=== PATIENT | female | born 1995 | race Caucasian/White ===

== ENCOUNTER 2018-08-16 12:33 | Emergency (ER) | payer BC, OTHER ==
[~2018-08-16] VITALS: Ht 165.1 cm; Wt 59.0 kg
[~2018-08-16 12:33] MED LIST: AMOX500C2 PO; CPH250CIP PO; Depo Provera; HYDR-3454 PO; IBUP-30 PO; LEVO500T69 PO; MEDR150D8 IM; ONDA4TAB11 PO
--- OUTSIDE RECORDS SUMMARY | 2018-08-16 12:41 | XMS REPORT ---
Author NAPOLEON Nagel [facility] [place] eClinicalWorks Address Unknown Phone Unavailable Care Team Providers Care Passenger Vessel Chef Name Role Phone NAPOLEON ALCANTAR CP Unavailable Allergies No Known Allergies Problems Problem Type Condition Code Onset Dates Condition Status Assessment Encounter for Depo-Provera contraception Z30.42 Active Medications No Known Medications Procedures Procedure Coding System Code Date DEPO PROVERA (150 MG/ML) CPT-4 J1050 Mar 17, 2015 THER/PROPH/DIAG INJ, SC/IM CPT-4 12826 Mar 17, 2015 URINE TEST CPT-4 90034 Mar 17, 2015 Results No Known Results Summary Purpose eClinicalWorks Submission
--- OUTSIDE RECORDS SUMMARY | 2018-08-16 12:41 | XMS REPORT | Continuity of Care Document ---
Author Author [facility] Organization [facility] Address Unknown Phone Unavailable Allergies Active Description Code Type Severity Reaction Onset Reported/Identified Relationship to Patient Clinical Status Yes No Known Drug Allergies [id number] Drug Allergy Unknown N/A 12/23/2011 Medications There is no data. Problems Date Dx Coded Attending Type Code Diagnosis Diagnosed By 12/24/2011 Ot 079.99 VIRAL INFECTION NOS 12/24/2011 Ot 599.0 URIN TRACT INFECTION NOS 12/24/2011 Ot 780.60 FEVER, UNSPECIFIED 11/05/2012 BAKARI HESS, ROCCO Pimentel Ot 787.01 NAUSEA WITH VOMITING 11/05/2012 ROCCO VILLEGAS MD Ot 789.00 ABDOMINAL PAIN, UNSPECIFIED SITE 09/02/2013 ALEC HESS, GUCCI Dowell Ot 703.0 INGROWING NAIL 05/24/2015 GUCCI MICHAEL MD Ot 681.11 05/24/2015 GUCCI MICHAEL MD Ot V72.84 05/24/2015 LUZ MARAI AGUDELO Ot J03.90 ACUTE TONSILLITIS, UNSPECIFIED 05/24/2015 LUZ MARIA AGUDELO Ot R09.81 NASAL CONGESTION 08/31/2015 GUCCI MICHAEL MD Ot 681.11 ONYCHIA OF TOE 08/31/2015 GUCCI MICHAEL MD Ot V72.84 EXAM PRE-OPERATIVE NOS 11/02/2015 GUCCI MICHAEL MD Ot 681.11 ONYCHIA OF TOE 11/02/2015 GUCCI MICHAEL MD Ot V72.84 EXAM PRE-OPERATIVE NOS Procedures There is no data. Results There is no data. Encounters ACCT No. Visit Date/Time Discharge Status Pt. Type Provider Facility Loc./Unit Complaint [id number] 05/24/2015 18:25:00 05/24/2015 20:08:00 DIS Emergency LUZ MARIA AGUDELO [facility] ER [id number] 09/02/2013 11:50:00 09/02/2013 16:00:00 [id number] 08/30/2013 13:10:00 08/30/2013 23:59:59 CLS Outpatient GUCCI MICHAEL MD [facility] PREOP [id number] 11/05/2012 09:21:00 11/05/2012 11:24:00 DIS Emergency BAKARI HESS, ROCCO Pimentel [facility] ER [id number] 12/23/2011 21:54:00 Document Registration [id number] 08/14/2018 09:20:00 ACT Outpatient SANDY, SIDDHARTHA CALVO [facility]
--- OUTSIDE RECORDS SUMMARY | 2018-08-16 12:41 | XMS REPORT ---
Author NAPOLEON Nagel [facility] eClinicalWorks Address Unknown Phone Unavailable Care Team Providers Care Radio Division Lieutenant Name Role Phone NAPOLEON ALCANTAR CP Unavailable Allergies No Known Allergies Problems Problem Type Condition Code Onset Dates Condition Status Assessment Encounter for immunization Z23 Active Medications No Known Medications Procedures Procedure Coding System Code Date SINGLE IMMUNIZATION ADMIN CPT-4 62652 December 08, 2015 HEP B (ADULT) CPT-4 45256 December 08, 2015 Results No Known Results Immunizations Vaccine Administration Date HEP B (ADULT) December 08, 2015 Summary Purpose eClinicalWorks Submission
--- OUTSIDE RECORDS SUMMARY | 2018-08-16 12:41 | XMS REPORT ---
Author NAPOLEON Nagel [facility] eClinicalWorks Address Unknown Phone Unavailable Care Team Providers Care Cash Applications Representative Name Role Phone NAPOLEON ALCANTAR CP Unavailable Allergies No Known Allergies Problems Problem Type Condition Code Onset Dates Condition Status Assessment Encounter for Depo-Provera contraception Z30.42 Active Medications No Known Medications Procedures Procedure Coding System Code Date DEPO PROVERA (150 MG/ML) CPT-4 J1050 September 11, 2015 THER/PROPH/DIAG INJ, SC/IM CPT-4 37432 September 11, 2015 URINE TEST CPT-4 81332 September 11, 2015 Results No Known Results Summary Purpose eClinicalWorks Submission
--- OUTSIDE RECORDS SUMMARY | 2018-08-16 12:41 | XMS REPORT ---
Author NAPOLEON Nagel [facility] eClinicalWorks Address Unknown Phone Unavailable Care Team Providers Care Wall Covering Contractor Name Role Phone NAPOLEON ALCANTAR CP Unavailable Allergies No Known Allergies Problems Problem Type Condition Code Onset Dates Condition Status Assessment Encounter for immunization Z23 Active Medications No Known Medications Procedures Procedure Coding System Code Date SINGLE IMMUNIZATION ADMIN CPT-4 20363 Feb 15, 2016 HEP B (ADULT) CPT-4 01443 Feb 15, 2016 Results No Known Results Immunizations Vaccine Administration Date HEP B (ADULT) Feb 15, 2016 Summary Purpose eClinicalWorks Submission
[2018-08-16] MEDS ORDERED: PRED10TA22 PO (13:17)
--- NOTE | 2018-08-16 13:17 | ED Integumentary General ---
General Stated Complaint: RASH History of Present Illness Date Seen by Provider: Aug 16, 2018 Time Seen by Provider: 13:04 This is a 22-year-old female here for "I have poison oak". She was seen at a clinic 2 days ago and received a "shot" but this is not helping her. She has no difficulty swallowing or breathing, no intraoral swelling. Her skin is very itchy but is not painful. There is no sloughing of the skin. It is mostly on the lower extremities but is also present on the trunk and upper extremities. Symptoms are constant, moderate, pruritic, not better with calamine lotion or injection from outside clinic. Allergies and Home Medications Allergies Coded Allergies: No Known Drug Allergies (Unverified , 12/23/11) Home Medications Amoxicillin 500 Mg Capsule, 500 MG PO TID Prescribed by: LUZ MARIA LIU on 05/24/151958 Cephalexin Hcl 250 Mg Cap, 250 MG PO TID, (Reported) Hydrocodone Bit/Acetaminophen 1 Each Tablet, 1-2 EACH PO Q4H PRN for PAIN Prescribed by: KIKE SARGENT on 09/02/13 1522 Medroxyprogesterone Acetate 150 Mg/1 Ml Syringe, 150 MG IM UD, (Reported) Prednisone 10 Mg Tab.ds.pk, 10 MG PO DAILY Take 6 tabs(60mg)daily,decrease by 1 tab(10mg)every other day. Prescribed by: HOLLEY LIU on 08/16/18 1317 Patient Home Medication List Home Medication List Reviewed: Yes Review of Systems Review of Systems Constitutional: no symptoms reported EENTM: no symptoms reported Respiratory: no symptoms reported Cardiovascular: no symptoms reported Gastrointestinal: no symptoms reported Genitourinary: no symptoms reported Musculoskeletal: no symptoms reported Skin: see HPI Psychiatric/Neurological: No Symptoms Reported Endocrine: No Symptoms Reported Hematologic/Lymphatic: No Symptoms Reported Past Mqpdocs-Sesipv-Yfvrzt Hx Past Med/Social Hx: Reviewed Nursing Past Med/Soc Hx Immunizations Up To Date Tetanus Booster (TDap): Less than 5yrs PED Vaccines UTD: Yes Date of Pneumonia Vaccine: May 15, 2006 Seasonal Allergies Seasonal Allergies: Yes Past Medical History Reproductive Disorders: No Sexually Transmitted Disease: No HIV/AIDS: No Family Medical History No Pertinent Family Hx Physical Exam Vital Signs Capillary Refill : General Appearance: no apparent distress HEENT: normal ENT inspection Neck: supple Cardiovascular: normal peripheral pulses, regular rate, rhythm Respiratory: lungs clear; No rales, No rhonchi, No wheezing Gastrointestinal: non tender, soft Neurologic/Psychiatric: no motor/sensory deficits, alert, normal mood/affect; No abnormal gait Skin: warm/dry, other (there is an erythematous, dry-appearing, slightly raised eruption on the lower extremities, trunk, upper extremities. Negative Nikolsky sign) Progress/Results/Core Measures Progress Progress Note : Progress Note Patient received what is likely a steroid injection at outside clinic and is not having relief of her pruritus. We will put patient on a prednisone taper, I also recommended that she try Benadryl and we reviewed that it can cause drowsiness so not to combine this with other medications that cause drowsiness and not to combine with alcohol. No signs of anaphylaxis, no signs of Arshad- Inderjit syndrome, stable for outpatient follow-up. Departure Impression Primary Impression: Contact dermatitis Disposition: 01 HOME, SELF-CARE Condition: Stable Departure-Patient Inst. Referrals: JOVAN HASKINS DO (PCP/Family) Primary Care Physician Scripts Prednisone (Prednisone) 10 Mg Tab.ds.pk 10 MG PO DAILY, #42 EA Take 6 tabs(60mg)daily,decrease by 1 tab(10mg)every other day. Prov: HOLLEY LIU DO 08/16/18 HOLLEY LIU DO Aug 16, 2018 13:17
[2018-08-16 13:20] VITALS: BP 99/54
== END 2018-08-16 14:58 | disposition home or self-care (01) ==
LOC: EDUNIT# 12:33 → ER FS 12:37
DX: L23.9 Allergic contact dermatitis, unspecified cause (principal); Z79.52 Long term (current) use of systemic steroids
CPT/HCPCS: 99282